=== PATIENT | male | born 1960 | race Caucasian/White ===

== ENCOUNTER → 2016-05-25 | Outpatient (CLI) | payer OTHER ==
[~2016-05-25] MED LIST: PIPERACILLIN-TAZOBACTAM 3.375 GM in DEXTROSE/WATER 1 50ML.BAG IVPB ONE; SODIUM CHLORIDE 0.9% 250 ML in EMPTY BAG 1 BAG IV PRN; SODIUM CHLORIDE 0.9% 500 ML in EMPTY BAG 1 BAG IV PRN
[2016-05-25 14:23] VITALS: BP 117/75; PULSE 54; RESP 16; TEMP 97.9
== END | disposition home or self-care (01) ==
LOC: PROCWHC3 13:42
PROVIDERS: ATTEND Internal Medicine Infectious Disease
DX: H70.92 Unspecified mastoiditis, left ear (principal)
CPT/HCPCS: 96365; J2543

== ENCOUNTER 2016-06-16 12:28 | Emergency (ER) | payer OTHER ==
--- NOTE | 2016-06-16 15:12 | ED ---
General Adult HPI - General Chief complaint: ENT Stated complaint: Sent by Dr Ulrich Time Seen by Provider: 06/16/16 14:36 Source: patient, RN notes reviewed Mode of arrival: ambulatory Limitations: no limitations - History of Present Illness Initial comments: 56-year-old male presenting for fever. Patient states that he has a PICC line is been on IV Zosyn for the past several weeks due to mastoiditis. He has a history of a left ear infection with a multidrug resistant bacteria. Does follow Dr. Ulrich for this, ID. States that he began developing a fever and chills yesterday. States she's had some nausea and vomiting associated as well as runny nose and sinus congestion. He denies any problems related to his PICC line. He is recommended to come into the ED for evaluation by Dr. Ulrich' office. He denies any chest pain or shortness of breath. - Related Data Home Medications Medication Instructions Recorded Confirmed Cyclobenzaprine [Flexeril] 10 mg PO HS 06/16/16 06/16/16 Heparin Sod 1000 Unit/1Ml [Heparin 100 unit IVPB Q8H 06/16/16 06/16/16 Sodium] Naproxen [Naprosyn] 500 mg PO HS PRN 06/16/16 06/16/16 Piperacillin Sodium/Tazobactam 4.5 gm IVPB Q8HR 06/16/16 06/16/16 [Zosyn] Prochlorperazine [Compazine] 10 mg PO Q6H 06/16/16 06/16/16 Varenicline [Chantix] 1 mg PO BID 06/16/16 06/16/16 Allergies Allergy/AdvReac Type Severity Reaction Status Date / Time codeine Allergy Itching Verified 06/16/16 16:17 Latex, Natural Rubber Allergy Rash/Hives Verified 06/16/16 16:17 Review of Systems ROS Statement: Those systems with pertinent positive or pertinent negative responses have been documented in the HPI. ROS Other: All systems not noted in ROS Statement are negative. Past Medical History Additional Past Medical History / Comment(s): hep. C History of Any Multi-Drug Resistant Organisms: Other MDRO Date of last positivie culture/infection: 05/18/2016 MDRO Source:: left ear Past Surgical History: Ear Surgery Additional Past Surgical History / Comment(s): left, infection ( PICC LINE, sees Dr. Ulrich) Past Psychological History: No Psychological Hx Reported Smoking Status: Former smoker Past Alcohol Use History: None Reported Past Drug Use History: None Reported General Exam - General Exam Comments Initial Comments: General: Awake and Alert. No acute distress. Does not appear acutely ill. Eyes: CHRISTIE, EOM intact. No nystagmus. No scleral icterus. HENT: Atraumatic, normocephalic. Mucous membranes moist. Trachea midline. Left ear with black/brown discharge, there is a cotton ball packed deep within the ear canal. Right ear appears normal. Neck: The neck is supple, there is no tenderness or JVD. Cardiovascular: Regular rate and rhythm. No murmur, rub, or gallop is appreciated. Distal pulses intact. Respiratory: Lungs are clear to auscultation bilaterally. No wheezes, rales, rhonchi. No respiratory distress. Gastrointestinal: Soft, Nontender. No rebound or guarding. Non-distended. No masses or organomegaly noted. No CVA tenderness. Musculoskeletal: No tenderness. Normal ROM. No gross deformity. No strength deficits. Neurological: A&Ox3. CN II-XII grossly intact, There are no obvious motor or sensory deficits. Coordination appears grossly intact. Speech is normal. Skin: Skin is warm and dry and no rashes or lesions are noted. Right arm PICC line appears intact without surrounding cellulitis or tenderness. Psychiatric: Cooperative, appropriate mood & affect, normal judgment. 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 Patient has noted a fever on initial vitals, although he does not appear acutely septic at this time. Symptoms consistent with likely viral URI. Lab work is grossly unremarkable without any white count elevation or concerning findings. Lactate was negative. Influenza was negative. Blood cultures drawn from PICC and peripherally. Patient was given IV fluids. On reevaluation he states he feels well. Updated on results and likely plan for discharge pending discussion with Dr. Ulrich. I called and discussed with KAELA Boone. He is familiar with patient. He states he can follow blood cultures. He recommends patient continue on his Zosyn. Recommends follow-up in the outpatient setting. He is agreeable with plan for discharge at this time, given clinical stability and low suspicion of sepsis at this time. Discussed concerning signs symptoms for immediate return with patient. Discussed continuing medications he currently has. He does have Zofran and Compazine at home for history of nausea. Discussed possibility of symptoms being related to Compazine, however patient states he's never had any adverse effects this medication. Pt and are agreeable with plan and discharge home. - Lab Data Result diagrams: 06/16/16 15:10 06/16/16 15:10 Lab Results 06/16/16 06/16/16 06/16/16 Range/Units 15:10 15:10 15:10 WBC (3.8-10.6) k/uL RBC (4.30-5.90) m/uL Hgb (13.0-17.5) gm/dL Hct (39.0-53.0) % MCV (80.0-100.0) fL MCH (25.0-35.0) pg MCHC (31.0-37.0) g/dL RDW (11.5-15.5) % Plt Count (150-450) k/uL Neutrophils % (Manual) % Band Neutrophils % % Lymphocytes % (Manual) % Monocytes % (Manual) % Eosinophils % (Manual) % Neutrophils # (Manual) (1.3-7.7) k/uL Lymphocytes # (Manual) (1.0-4.8) k/uL Monocytes # (Manual) (0-1.0) k/uL Eosinophils # (Manual) (0-0.7) k/uL Nucleated RBCs (0-0) /100 WBC Manual Slide Review RBC Morphology Sodium 138 (137-145) mmol/L Potassium 4.2 (3.5-5.1) mmol/L Chloride 106 (98-107) mmol/L Carbon Dioxide 20 L (22-30) mmol/L Anion Gap 12 mmol/L BUN 10 (9-20) mg/dL Creatinine 1.00 (0.66-1.25) mg/dL Est GFR (MDRD) Af Amer >60 (>60 ml/min/1.73 sqM) Est GFR (MDRD) Non-Af >60 (>60 ml/min/1.73 sqM) Glucose 83 (74-99) mg/dL Plasma Lactic Acid [place] (0.7-2.0) mmol/L Calcium 9.0 (8.4-10.2) mg/dL Urine Color Yellow Urine Appearance Clear (Clear) Urine pH 6.0 (5.0-8.0) Ur Specific Lead 1.015 (1.001-1.035) Urine Protein Trace H (Negative) Urine Glucose (UA) Negative (Negative) Urine Ketones Trace H (Negative) Urine Blood Trace H (Negative) Urine Nitrite Negative (Negative) Urine Bilirubin Negative (Negative) Urine Urobilinogen <2.0 (<2.0) mg/dL Ur Leukocyte Esterase Negative (Negative) Urine RBC 6 H (0-5) /hpf Urine WBC <1 (0-5) /hpf Amorphous Sediment Rare H (None) /hpf Influenza Type A RNA Not Detected (Not Detectd) Influenza Type B (PCR) Not Detected (Not Detectd) 06/16/16 06/16/16 Range/Units 15:10 15:10 WBC 4.3 (3.8-10.6) k/uL RBC 4.89 (4.30-5.90) m/uL Hgb 13.9 (13.0-17.5) gm/dL Hct 42.8 (39.0-53.0) % MCV 87.5 (80.0-100.0) fL MCH 28.4 (25.0-35.0) pg MCHC 32.4 (31.0-37.0) g/dL RDW 13.6 (11.5-15.5) % Plt Count 167 (150-450) k/uL Neutrophils % (Manual) 65.0 % Band Neutrophils % 11.0 % Lymphocytes % (Manual) 9.0 % Monocytes % (Manual) 10.0 % Eosinophils % (Manual) 5.0 % Neutrophils # (Manual) 3.3 (1.3-7.7) k/uL Lymphocytes # (Manual) 0.4 L (1.0-4.8) k/uL Monocytes # (Manual) 0.4 (0-1.0) k/uL Eosinophils # (Manual) 0.2 (0-0.7) k/uL Nucleated RBCs 0 (0-0) /100 WBC Manual Slide Review Performed RBC Morphology Normal Sodium (137-145) mmol/L Potassium (3.5-5.1) mmol/L Chloride (98-107) mmol/L Carbon Dioxide (22-30) mmol/L Anion Gap mmol/L BUN (9-20) mg/dL Creatinine (0.66-1.25) mg/dL Est GFR (MDRD) Af Amer (>60 ml/min/1.73 sqM) Est GFR (MDRD) Non-Af (>60 ml/min/1.73 sqM) Glucose (74-99) mg/dL Plasma Lactic Acid [place] 0.7 (0.7-2.0) mmol/L Calcium (8.4-10.2) mg/dL Urine Color Urine Appearance (Clear) Urine pH (5.0-8.0) Ur Specific Lead (1.001-1.035) Urine Protein (Negative) Urine Glucose (UA) (Negative) Urine Ketones (Negative) Urine Blood (Negative) Urine Nitrite (Negative) Urine Bilirubin (Negative) Urine Urobilinogen (<2.0) mg/dL Ur Leukocyte Esterase (Negative) Urine RBC (0-5) /hpf Urine WBC (0-5) /hpf Amorphous Sediment (None) /hpf Influenza Type A RNA (Not Detectd) Influenza Type B (PCR) (Not Detectd) Disposition Clinical Impression: Fever, Nausea and vomiting, Chronic mastoiditis Disposition: HOME SELF-CARE Condition: Stable Instructions: Mastoiditis (ED) Additional Instructions: You may continue the Compazine or Zofran for nausea and vomiting. Tylenol or Motrin for fevers. Referrals: Nancy De La Garza CRNP [REFERRING] - 1-2 days Mehdi Ulrich MD [STAFF PHYSICIAN] - 1-2 days Time of Disposition: 16:59
[2016-06-16 15:34] LABS: Aty Lym Flag Slight; CH 30.2; CHCM 34.6; HCT 42.8 % (39.0-53.0); HDW 2.65; HGB 13.9 gm/dL (13.0-17.5); MCH 28.4 pg (25.0-35.0); MCHC 32.4 g/dL (31.0-37.0); MCV 87.5 fL (80.0-100.0); Mean Platelet Volume 6.9; RBC 4.89 m/uL (4.30-5.90); RDW 13.6 % (11.5-15.5); WBC 4.3 k/uL (3.8-10.6); WBC (Perox) 4.68
[2016-06-16 15:35] LABS: Anion Gap 12 mmol/L; Blood Urea Nitrogen 10 mg/dL (9-20); Carbon Dioxide 20 mmol/L (22-30); Chloride 106 mmol/L (98-107); Glucose 83 mg/dL (74-99); Non-African American GFR(MDRD) >60 (>60 ml/min/1.73 sqM); Potassium 4.2 mmol/L (3.5-5.1); Sodium 138 mmol/L (137-145)
[2016-06-16 16:00] LABS: Amorphous Sediment,Urine Rare /hpf; Appearance,Urine Clear (Clear); Bilirubin,Urine Negative (Negative); Glucose,Urine (UA) Negative (Negative); Ketones,Urine Trace (Negative); Leukocyte Esterase,Urine Negative (Negative); Nitrite,Urine Negative (Negative); Particle Count 953; Protein,Urine Trace (Negative); RBC,Urine 6 /hpf (0-5); Specific Gravity,Urine 1.015 (1.001-1.035); UA Billing (MACRO vs. MICRO) MICRO; Urobilinogen,Urine <2.0 mg/dL (<2.0); WBC,Urine <1 /hpf (0-5)
[2016-06-16 16:29] LABS: Add Differential Manual Differential
[2016-06-16 16:32] LABS: Manual Review Performed; Nucleated Red Blood Cells 0 /100 WBC (0-0); RBC Morphology Normal; Total Cells Counted 100
[2016-06-16 17:08] VITALS: BP 134/84; PULSE 89; RESP 20; TEMP 98
== END 2016-06-16 17:15 | disposition home or self-care (01) ==
LOC: EC 12:28
DX: H70.12 Chronic mastoiditis, left ear (principal); R11.2 Nausea with vomiting, unspecified; Z87.891 Personal history of nicotine dependence; Z79.899 Other long term (current) drug therapy; Z88.5 Allergy status to narcotic agent; Z91.040 Latex allergy status; Z98.890 Other specified postprocedural states; Z95.828 Presence of other vascular implants and grafts
CPT/HCPCS: 36415; 80048; 81001; 83605; 85025; 87040; 87502; 99283; 99284

== ENCOUNTER 2020-03-28 01:53 | Emergency (ER) | payer OTHER ==
[2020-03-28 02:06] VITALS: TEMP 98
--- NOTE | 2020-03-28 02:32 | ED ---
Psych HPI - General Chief Complaint: Psychiatric Symptoms Stated Complaint: Mental health Time Seen by Provider: 03/28/20 01:55 Source: EMS, RN notes reviewed, old records reviewed Mode of arrival: EMS - History of Present Illness MD Complaint: feels depressed, altered mental status (probable thoughts to commit arson) -: days(s) Associated Psychiatric Symptoms: none Quality: constant Improves With: none Worsens With: none Context: not taking psychiatric medications Associated Symptoms: denies other symptoms Treatments Prior to Arrival: placed on mental health hold If Self Harm: other (patients thought to commit arson) - Related Data Home Medications Medication Instructions Recorded Confirmed Cyclobenzaprine [Flexeril] 10 mg PO HS 06/16/16 06/16/16 Heparin Sod 1000 Unit/1Ml [Heparin 100 unit IVPB Q8H 06/16/16 06/16/16 Sodium] Naproxen [Naprosyn] 500 mg PO HS PRN 06/16/16 06/16/16 Piperacillin Sodium/Tazobactam 4.5 gm IVPB Q8HR 06/16/16 06/16/16 [Zosyn] Prochlorperazine [Compazine] 10 mg PO Q6H 06/16/16 06/16/16 Varenicline [Chantix] 1 mg PO BID 06/16/16 06/16/16 Allergies Allergy/AdvReac Type Severity Reaction Status Date / Time codeine Allergy Itching Verified 03/28/20 02:06 Latex, Natural Rubber Allergy Rash/Hives Verified 03/28/20 02:06 Review of Systems ROS Statement: Those systems with pertinent positive or pertinent negative responses have been documented in the HPI. ROS Other: All systems not noted in ROS Statement are negative. Past Medical History Additional Past Medical History / Comment(s): hep. C History of Any Multi-Drug Resistant Organisms: Other MDRO Date of last positivie culture/infection: 05/18/2016 MDRO Source:: left ear Past Surgical History: Ear Surgery Additional Past Surgical History / Comment(s): left, infection ( PICC LINE, sees Dr. Ulrich) Past Psychological History: No Psychological Hx Reported Smoking Status: Current every day smoker Past Alcohol Use History: None Reported Past Drug Use History: None Reported General Exam Limitations: no limitations General appearance: alert, in no apparent distress Head exam: Present: atraumatic, normocephalic, normal inspection Eye exam: Present: normal appearance, PERRL, EOMI. Absent: scleral icterus, conjunctival injection, periorbital swelling ENT exam: Present: normal exam, mucous membranes moist Neck exam: Present: normal inspection. Absent: tenderness, meningismus, lymphadenopathy Respiratory exam: Present: normal lung sounds bilaterally. Absent: respiratory distress, wheezes, rales, rhonchi, stridor Cardiovascular Exam: Present: regular rate, normal rhythm, normal heart sounds. Absent: systolic murmur, diastolic murmur, rubs, gallop, clicks GI/Abdominal exam: Present: soft, normal bowel sounds. Absent: distended, tenderness, guarding, rebound, rigid Extremities exam: Present: normal inspection, full ROM, normal capillary refill. Absent: tenderness, pedal edema, joint swelling, calf tenderness Back exam: Present: normal inspection Neurological exam: Present: alert, oriented X3, CN II-XII intact Psychiatric exam: Present: normal affect, normal mood Skin exam: Present: warm, dry, intact, normal color. Absent: rash Course Vital Signs 03/28/20 02:02 Temperature 98 F Pulse Rate 85 Respiratory 19 Rate Blood Pressure 120/50 O2 Sat by Pulse 95 Oximetry - Reevaluation(s) Reevaluation #1: 03/28/20 05:29 medical record is reviewed 03/28/20 05:29 medically clear for psychiatric evaluation Medical Decision Making - Lab Data Lab Results 03/28/20 Range/Units 02:21 Urine Opiates Screen Not Detected (NotDetected) Ur Oxycodone Screen Not Detected (NotDetected) Urine Methadone Screen Not Detected (NotDetected) Ur Propoxyphene Screen Not Detected (NotDetected) Ur Barbiturates Screen Not Detected (NotDetected) U Tricyclic Antidepress Not Detected (NotDetected) Ur Phencyclidine Scrn Not Detected (NotDetected) Ur Amphetamines Screen Not Detected (NotDetected) U Methamphetamines Scrn Not Detected (NotDetected) U Benzodiazepines Scrn Not Detected (NotDetected) Urine Cocaine Screen Not Detected (NotDetected) U Marijuana (THC) Screen Detected H (NotDetected) Disposition Clinical Impression: Alcohol intoxication Disposition: HOME SELF-CARE Condition: Fair Instructions (If sedation given, give patient instructions): Alcohol Intoxication (ED) Is patient prescribed a controlled substance at d/c from ED?: No Referrals: Rajinder Arboleda MD [Primary Care Provider] - 1-2 days
[2020-03-28 02:42] LABS: Amphetamine Screen,Urine Not Detected (NotDetected); Barbiturate Screen,Urine Not Detected (NotDetected); Benzodiazepines Screen,Urine Not Detected (NotDetected); Cocaine Screen,Urine Not Detected (NotDetected); Methadone Screen, Urine Not Detected (NotDetected); Opiate Screen,Urine Not Detected (NotDetected); Oxycodone Screen, Urine Not Detected (NotDetected); Phencyclidine Screen,Urine Not Detected (NotDetected); Tricyclic Antidepressant,Urine Not Detected (NotDetected); Urn Cannabinoid Scrn Detected (NotDetected)
[2020-03-28] MEDS ORDERED: NICOTINE 21MG/24HR PATCH TRANSDERM STA (03:09)
[2020-03-28] MEDS ORDERED: IBUPROFEN 200 MG TAB PO STA (05:38)
[2020-03-28 10:04] VITALS: BP 143/88; PULSE 63; RESP 16
== END 2020-03-28 10:04 | disposition home or self-care (01) ==
LOC: EC 01:53
DX: F10.129 Alcohol abuse with intoxication, unspecified (principal); F17.200 Nicotine dependence, unspecified, uncomplicated; Z88.5 Allergy status to narcotic agent; Z91.040 Latex allergy status; Y90.9 Presence of alcohol in blood, level not specified
CPT/HCPCS: 82075; 80306; 99285; S4990